=== PATIENT | female | born 1940 | race Caucasian/White ===

== ENCOUNTER 2017-12-15 06:20 | Day surgery (SDC) | payer MEDICARE ==
[2017-12-13 12:40] LABS: Basophils # (auto) 0.1 uL; Basophils % (auto) 0.9 % (0.0-2.0); Eosinophils # (auto) 0.1 uL; Eosinophils % (auto) 1.2 % (0.0-7.0); Hemoglobin 10.4 g/dL (12.2-16.2); Lymphocytes # (auto) 1.8 uL; Mean Corpuscular Hemoglobin 27.9 pg (28.0-32.0); Mean Corpuscular Hgb Conc. 31.4 g/dL (32.0-36.0); Mean Corpuscular Volume 88.8 fL (80.0-100.0); Monocytes # (auto) 0.9 uL; Monocytes % (auto) 8.8 % (0.0-12.0); Neutrophils # (auto) 7.5 uL; Neutrophils % (auto) 72.1 % (37.0-80.0); Platelet Count (auto) 379 10^3/uL (140-450); Red Blood Cells 3.72 10^6/uL (4.0-5.20); Red Cell Distribution Width 15.4 % (11.8-14.3); White Blood Cell 10.4 10^3/uL (4.4-10.8)
[2017-12-13 12:54] LABS: INR 0.88 (0.9-1.15); Partial Thromboplastin Time 20.3 sec (22.64-33.71); Prothrombin Time 9.6 sec (9.37-12.3)
[2017-12-13 12:56] LABS: Potassium 3.3 mmol/L (3.5-5.1)
[2017-12-13 13:02] LABS: Albumin 3.6 g/dL (3.4-5.0); BUN/Creatinine Ratio 16.4; Bilirubin, Total 0.2 mg/dL (0.2-1.0); Calcium 8.8 mg/dL (8.5-10.1); Total Protein 7.3 g/dL (6.4-8.2)
[~2017-12-15] VITALS: Ht 154.9 cm; Wt 81.6 kg
[~2017-12-15 06:20] MED LIST: ALBUAER3 IN; ALPR0.5T PO; LEVO50TA7 PO; PRE5T OR; TEMA30CA PO; TRAM50TA2 PO
[2017-12-15] MEDS ORDERED: HYDROCORTISONE SOD SUCC 100 MG/2ML INJ VIAL IV ONE (06:21)
[2017-12-15] MEDS ORDERED: BUPIVACAINE 0.75% INJ 10ML MPV SDV IJ ONE ×2 (06:55→09:30)
[2017-12-15] MEDS ORDERED: NEOMYCIN-BACITRACIN-POLYM 15GM TOP OINT TOP ONE ×2 (06:56→09:30)
[2017-12-15] MEDS ORDERED: ceFAZolin 1GM/50ML 50 ML IV ONE (07:53)
[2017-12-15] MEDS ORDERED: PROPOFOL 10 MG/ML 20 ML IV ONE (08:47)
[2017-12-15] MEDS ORDERED: MIDAZOLAM HCL 1MG/1ML-2 ML VIAL ONE (08:47)
[2017-12-15] MEDS ORDERED: fentaNYL CITRATE 100 MCG/2 ML VL ONE (08:47)
[2017-12-15] MEDS ORDERED: ePHEDrine SULFATE 50 MG/ML AMP IV PRN (09:15)
[2017-12-15] MEDS ORDERED: hydrALAZINE HCL 20 MG/ML VL IV PRN (09:15)
[2017-12-15] MEDS ORDERED: ONDANSETRON HCL 4 MG/2 ML VIAL IV ONE (09:15)
[2017-12-15 09:46] VITALS: BP 153/68
[2017-12-15] MEDS ORDERED: fentaNYL CITRATE 100 MCG/2 ML VL IV ONE (10:00)
== END 2017-12-15 09:50 | disposition home or self-care (01) ==
LOC: SUR 06:20
PROVIDERS: ATTEND Podiatrist Foot & Ankle Surgery
DX: M65.872 Other synovitis and tenosynovitis, left ankle and foot (principal); M25.572 Pain in left ankle and joints of left foot; E66.9 Obesity, unspecified; Z68.34 Body mass index [BMI] 34.0-34.9, adult; J45.909 Unspecified asthma, uncomplicated; Z87.891 Personal history of nicotine dependence; J44.9 Chronic obstructive pulmonary disease, unspecified; M81.0 Age-related osteoporosis without current pathological fracture; N39.0 Urinary tract infection, site not specified; Z79.891 Long term (current) use of opiate analgesic; Z79.899 Other long term (current) drug therapy; Z88.1 Allergy status to other antibiotic agents
CPT/HCPCS: 27626; 36415; 80053; 85025; 85610; 85730; J0690; J1720; J2250; J2704; J3010; J3490

== ENCOUNTER 2021-10-14 01:27 | Inpatient (IN) | payer MEDICARE, MEDICAID ==
[~2021-10-14] VITALS: Ht 152.4 cm; Wt 39.0 kg
[2021-10-14] VITALS (29 sets, daily range): BP systolic 82–124; BP diastolic 32–72
[2021-10-14] MEDS ORDERED: SODIUM CHLORIDE 0.9% 1,000 ML IV ONE (02:15)
[2021-10-14 03:19] LABS: Basophils # (auto) 0 10 ^3/uL (0-0.2); Basophils % (auto) 0.1 % (0.0-2.0); Eosinophils # (auto) 0 10 ^3/uL (0-0.8); Hematocrit 18.8 % (36.0-46.0); Lymphocytes # (auto) 0.4 10 ^3/uL (0.4-5.4); Lymphocytes % (auto) 1.7 % (10.0-50.0); Mean Corpuscular Hemoglobin 20.2 pg (28.0-32.0); Mean Corpuscular Hgb Conc. 28.3 g/dL (32.0-36.0); Mean Corpuscular Volume 71.5 fL (80.0-100.0); Monocytes # (auto) 1.4 10 ^3/uL (0-1.3); Monocytes % (auto) 6.7 % (0.0-12.0); Neutrophils # (auto) 19.2 10 ^3/uL (1.6-8.6); Neutrophils % (auto) 91.5 % (37.0-80.0); Nucleated Red Blood Cells % 1.6 %; Red Blood Cells 2.64 10^6/uL (4.0-5.20)
[2021-10-14 03:20] LABS: Hemoglobin 5.3 g/dL (12.2-16.2); Red Cell Distribution Width 22.2 % (11.8-14.3)
[2021-10-14 03:34] LABS: Albumin 3.3 g/dL (3.4-5.0); BUN/Creatinine Ratio 17.7; Potassium 4.7 mmol/L (3.5-5.1)
[2021-10-14 03:36] LABS: Lactic Acid w/Reflex 3.9 mmol/L (0.4-2.0)
[2021-10-14 03:42] LABS: Bilirubin, Total 0.6 mg/dL (0.2-1.0); Total Protein 6.7 g/dL (6.4-8.2)
[2021-10-14] MEDS ORDERED: ONDANSETRON HCL 4 MG/2 ML VIAL IM ONE (05:12)
[2021-10-14] MEDS ORDERED: ONDANSETRON HCL 4 MG/2 ML VIAL IV ONE (05:15)
[2021-10-14 06:35] LABS: INR 1.53 (0.9-1.15)
[2021-10-14] MEDS ORDERED: dilTIAZem 25 MG/5 ML VIAL IV ONE (07:45)
[2021-10-14] MEDS ORDERED: dilTIAZem 125mg/125ml BAG KIT 125 ML IV ONE (07:45)
[2021-10-14] MEDS: PHENYLEPHRINE IV 250 ML IV SCH ×2 (09:30→17:39)
[2021-10-14] MEDS ORDERED: cefTRIAXone 1GM/50ML D5W 50 ML IV ONE (10:30)
[2021-10-14] MEDS ORDERED: metroNIDAZOLE 500MG/100ML 100 ML IV ONE (10:30)
[2021-10-14] MEDS ORDERED: HYDROcodone-ACET 5/325MG TAB PO ONE (10:45)
[2021-10-14] MEDS ORDERED: MONTELUKAST SODIUM 10 MG TAB PO ONE (10:45)
[2021-10-14] MEDS ORDERED: methylPREDNISolone SOD SUCC 125 MG/2 ML VL IV ONE (10:45)
[2021-10-14] MEDS ORDERED: NITROGLYCERIN 0.4 MG SL TAB SL PRN (10:45)
[2021-10-14] MEDS ORDERED: DOCUSATE SOD 100 MG CAP PO PRN (10:45)
[2021-10-14] MEDS ORDERED: ONDANSETRON HCL 4 MG/2 ML VIAL IV PRN (10:45)
[2021-10-14] MEDS ORDERED: MORPHINE SULFATE INJECTION 2 MG/ML SYRG IV PRN ×2 (10:45)
[2021-10-14] MEDS ORDERED: LACTULOSE 20Gm/30ML SOLN PO PRN (10:45)
[2021-10-14] MEDS ORDERED: BUDESONIDE (INHALATION) 0.5 MG/2 ML NEB NEB ONE (10:45)
[2021-10-14] MEDS ORDERED: LORazepam 0.5 MG TAB PO PRN (10:45)
[2021-10-14] MEDS ORDERED: IPRATROPIUM BROM 0.5 MG/2.5ML INH SOL NEB ONE (10:45)
[2021-10-14] MEDS ORDERED: AZITHROMYCIN 500MG/ 250ML 250 ML IV ONE (10:45)
[2021-10-14] MEDS ORDERED: PANTOPRAZOLE 40 MG/10 ML VIAL INJ IV ONE (10:45)
[2021-10-14] MEDS ORDERED: hydrALAZINE HCL 20 MG/ML VL IV PRN (10:45)
[2021-10-14] MEDS ORDERED: METOCLOPRAMIDE HCL 5MG/ml INJ 2ml VIAL IV PRN (10:45)
[2021-10-14] MEDS: dilTIAZem 125mg/125ml BAG KIT 125 ML IV SCH (10:59)
[2021-10-14] MEDS: METOCLOPRAMIDE HCL 5MG/ml INJ 2ml VIAL IV PRN ×2 (11:13→18:54)
[2021-10-14 11:15] LABS: Mean Corpuscular Hgb Conc. 30.4 g/dL (32.0-36.0); Red Blood Cells 3.56 10^6/uL (4.0-5.20)
[2021-10-14 11:27] LABS: INR 1.55 (0.9-1.15); Partial Thromboplastin Time 28.5 sec (23.6-33.0)
[2021-10-14] MEDS ORDERED: FERROUS SULFATE 300 MG/5 ML ORAL LIQ PO ONE (11:30)
[2021-10-14] MEDS ORDERED: DEXTROSE (50%) 50ML SYRG IV PRN (11:30)
[2021-10-14 11:33] LABS: Albumin 2.9 g/dL (3.4-5.0); Calcium 7.2 mg/dL (8.5-10.1); Potassium 4.6 mmol/L (3.5-5.1)
[2021-10-14 11:38] LABS: Hematocrit 27.2 % (36.0-46.0); Hemoglobin 8.3 g/dL (12.2-16.2); Mean Corpuscular Hemoglobin 23.2 pg (28.0-32.0); Mean Corpuscular Volume 76.4 fL (80.0-100.0); White Blood Cell 29.9 10^3/uL (4.4-10.8)
[2021-10-14 11:42] LABS: Basophils % (manual) 0 (0.0-2.0); Blast Cells 0; Eosinophils % (manual) 0 (0-7); Lymphocytes % (manual) 0 (10.0-50.0); Metamyelocytes % 0; Myelocytes % 0; Promyelocytes % 0; Reactive Lymphocytes 0; Red Cell Distribution Width 21.5 % (11.8-14.3)
[2021-10-14] MEDS: ACCU-CHEK COMFORT CURVE STRIP VI SCH ×3 (12:00→22:00)
[2021-10-14] MEDS: InsuLIN REG 1unit/0.01ml Soln (100units/ml) SC SCH ×3 (12:00→22:00)
[2021-10-14 12:09] LABS: Magnesium 1.8 mg/dL (1.6-2.6); Phosphorus 8.6 mg/dL (2.5-4.90)
[2021-10-14 12:17] LABS: BUN/Creatinine Ratio 19.4; Bilirubin, Total 1.4 mg/dL (0.2-1.0); Total Protein 6.1 g/dL (6.4-8.2)
[2021-10-14 13:11] LABS: Band Neutrophils % (manual) 25; Monocytes % (manual) 1 (0-12)
[2021-10-14] MEDS: FERROUS SULFATE 300 MG/5 ML ORAL LIQ PO SCH ×2 (13:22→17:39)
[2021-10-14] MEDS: SODIUM CHLORIDE 0.9% 1,000 ML IV SCH (13:22)
[2021-10-14] MEDS: GABAPENTIN 100 MG CAP PO SCH ×2 (14:00→22:00)
[2021-10-14] MEDS: IPRATROPIUM BROM 0.5 MG/2.5ML INH SOL NEB SCH ×2 (14:07→18:20)
[2021-10-14] MEDS: methylPREDNISolone SOD SUCC 40 MG/ML VL IV SCH ×2 (15:19→21:39)
[2021-10-14] MEDS ORDERED: dilTIAZem 120MG ER CAP PO ONE (17:00)
[2021-10-14] MEDS: BUDESONIDE (INHALATION) 0.5 MG/2 ML NEB NEB SCH (19:38)
[2021-10-14] MEDS: PANTOPRAZOLE 40 MG/10 ML VIAL INJ IV SCH (21:38)
[2021-10-14] MEDS ORDERED: ATORVASTATIN 20 MG TAB PO SCH (22:00)
[2021-10-15] VITALS (32 sets, daily range): BP systolic 35–153; BP diastolic 16–77
[2021-10-15] MEDS ORDERED: IPRATROPIUM BROM 0.5 MG/2.5ML INH SOL NEB SCH
[2021-10-15] MEDS: PHENYLEPHRINE IV 250 ML IV SCH ×2 (02:10→05:10)
[2021-10-15] MEDS ORDERED: ACETAMINOPHEN 325 MG TAB PO PRN (05:15)
[2021-10-15] MEDS ORDERED: traMADol HCL 50 MG TAB PO ONE (05:15)
[2021-10-15 05:38] LABS: Hemoglobin 8.1 g/dL (12.2-16.2)
[2021-10-15 05:41] LABS: Hematocrit 26.9 % (36.0-46.0); Mean Corpuscular Hemoglobin 23.4 pg (28.0-32.0); Red Blood Cells 3.45 10^6/uL (4.0-5.20)
[2021-10-15 05:50] LABS: Red Cell Distribution Width 20.4 % (11.8-14.3)
[2021-10-15 05:51] LABS: White Blood Cell 36.6 10^3/uL (4.4-10.8)
[2021-10-15 05:53] LABS: Basophils % (manual) 0 (0.0-2.0); Blast Cells 0; Eosinophils % (manual) 0 (0-7); Metamyelocytes % 0; Myelocytes % 0; Promyelocytes % 0; Reactive Lymphocytes 0
[2021-10-15] MEDS: GABAPENTIN 100 MG CAP PO SCH ×2 (06:00→14:00)
[2021-10-15 06:02] LABS: INR 2.4 (0.9-1.15); Partial Thromboplastin Time 35.2 sec (23.6-33.0)
[2021-10-15 06:12] LABS: Albumin 2.8 g/dL (3.4-5.0); BUN/Creatinine Ratio 19.2; Bilirubin, Total 1.1 mg/dL (0.2-1.0); CRP High Sensitivity 12.6 mg/dL (< 0.3); Calcium 6.7 mg/dL (8.5-10.1); Magnesium 2.4 mg/dL (1.6-2.6); Total Protein 5.7 g/dL (6.4-8.2)
[2021-10-15 06:15] LABS: Phosphorus 10.7 mg/dL (2.5-4.90); Potassium 6.7 mmol/L (3.5-5.1)
[2021-10-15] MEDS ORDERED: NOREPINEPHRINE 8 MG/250ML KIT 250 ML IV ONE (06:15)
[2021-10-15 06:19] LABS: % Iron Saturation 3.4 % (15-50)
[2021-10-15] MEDS ORDERED: SODIUM BICARBONATE 8.4% INJ 50ML SYRINGE IV ONE ×3 (06:30→21:04)
[2021-10-15] MEDS ORDERED: CALCIUM GLUC 1,000mg/50ml-NS 50 ML IV ONE ×2 (06:30→08:45)
[2021-10-15] MEDS ORDERED: InsuLIN REG 1unit/0.01ml Soln (100units/ml) IV ONE ×3 (06:30→15:00)
[2021-10-15] MEDS ORDERED: DEXTROSE (50%) 50ML SYRG IV ONE ×3 (06:30→15:00)
[2021-10-15] MEDS ORDERED: SODIUM ZIRCONIUM CYCL 10 GM PAK PO ONE ×2 (06:30→15:00)
[2021-10-15 06:47] LABS: Band Neutrophils % (manual) 54; Lymphocytes % (manual) 1 (10.0-50.0); Monocytes % (manual) 3 (0-12)
[2021-10-15] MEDS: InsuLIN REG 1unit/0.01ml Soln (100units/ml) SC SCH ×2 (07:00→11:30)
[2021-10-15] MEDS: ACCU-CHEK COMFORT CURVE STRIP VI SCH ×2 (07:00→11:30)
[2021-10-15] MEDS ORDERED: LEVOTHYROXINE SODIUM 25 MCG TAB PO SCH (07:00)
[2021-10-15] MEDS: SODIUM CHLORIDE 0.9% 1,000 ML IV SCH (07:51)
[2021-10-15] MEDS: FERROUS SULFATE 300 MG/5 ML ORAL LIQ PO SCH ×2 (08:00→12:00)
[2021-10-15] MEDS ORDERED: NOREPINEPHRINE 8 MG/250ML KIT 250 ML IV SCH ×2 (08:00→15:15)
[2021-10-15 08:07] LABS: Urine Bacteria FEW /hpf (None Seen); Urine Blood Negative /uL (Negative); Urine Hyaline Cast FEW /lpf (0 - 2); Urine Mucus FEW (None Seen); Urine Specific Gravity 1.018 (1.001-1.035); Urine WBC 1 /hpf (0 - 5)
[2021-10-15 08:35] LABS: Alcohol, Urine < 3.0 mg/dL (0-10); Amphetamine Screen, Urine NEGATIVE (NEGATIVE); Barbiturate Scree,Urine NEGATIVE (NEGATIVE); Benzodiazephine Screen, Urine POSITIVE (NEGATIVE); Cocaine Screen, Urine NEGATIVE (NEGATIVE); Opiate Scree,Urine NEGATIVE (NEGATIVE); Phencyclidine Screen, Urine NEGATIVE (NEGATIVE)
[2021-10-15 08:43] LABS: Cannabinoid Screen, Urine POSITIVE (NEGATIVE)
[2021-10-15] MEDS ORDERED: SODIUM BICARBONATE 50ML VIAL 100 ML in D5W 5% 1,000 ML IV SCH (08:45)
[2021-10-15] MEDS: BUDESONIDE (INHALATION) 0.5 MG/2 ML NEB NEB SCH (08:51)
[2021-10-15] MEDS ORDERED: cefTRIAXone 1GM/50ML D5W 50 ML IV SCH (09:00)
[2021-10-15] MEDS ORDERED: ALBUTEROL SULF 2.5 MG/0.5ML(0.5%) NEB SOLN NEB ONE (09:15)
[2021-10-15] MEDS ORDERED: CHOLECALCIFEROL (VITD3) 2,000 UNIT CAP/TAB PO SCH (10:00)
[2021-10-15] MEDS ORDERED: LEVOTHYROXINE SODIUM 100 MCG/5 ML INJ IV SCH (10:00)
[2021-10-15] MEDS ORDERED: AZITHROMYCIN 500MG/ 250ML 250 ML IV SCH (10:00)
[2021-10-15] MEDS ORDERED: MEROPENEM 500MG IVPB 50 ML IV SCH (10:00)
[2021-10-15] MEDS ORDERED: ROCURONIUM 10MG/ML 10ML VIAL IV ONE (10:00)
[2021-10-15] MEDS ORDERED: ETOMIDATE (2MG/ML) 20ML VIAL IV ONE (10:00)
[2021-10-15] MEDS ORDERED: dilTIAZem HCL 180MG ER CAP PO SCH (10:00)
[2021-10-15] MEDS ORDERED: PROPOFOL 0 ML IV ONE (10:03)
[2021-10-15] MEDS ORDERED: DOPamine 1600MCG/ML D5W 250 ML IV ONE (10:09)
[2021-10-15] MEDS ORDERED: fentaNYL Drip 2500mCg/250mlNS 250 ML IV SCH ×2 (10:15→15:15)
[2021-10-15] MEDS ORDERED: DOPamine 1600MCG/ML D5W 250 ML IV SCH ×2 (10:15→15:15)
[2021-10-15] MEDS ORDERED: fentaNYL Drip 2500mCg/250mlNS 250 ML IV ONE (10:16)
[2021-10-15] MEDS: dilTIAZem 125mg/125ml BAG KIT 125 ML IV SCH (10:45)
[2021-10-15] MEDS ORDERED: EPINEPHrine HCL 250 ML IV ONE (12:48)
[2021-10-15] MEDS ORDERED: VASOPRESSIN 50 UNITS in D5W 5% 247.5 ML IV SCH ×2 (13:15→15:15)
[2021-10-15 13:34] LABS: Basophils % (auto) 0.2 % (0.0-2.0); Eosinophils # (auto) 0 10 ^3/uL (0-0.8); Lymphocytes # (auto) 0.8 10 ^3/uL (0.4-5.4)
[2021-10-15 13:36] LABS: Basophils # (auto) 0 10 ^3/uL (0-0.2); Eosinophils % (auto) 0.1 % (0.0-7.0); Hematocrit 20.1 % (36.0-46.0); Lymphocytes % (auto) 3.1 % (10.0-50.0); Mean Corpuscular Hemoglobin 24.4 pg (28.0-32.0); Mean Corpuscular Hgb Conc. 30.5 g/dL (32.0-36.0); Mean Corpuscular Volume 79.9 fL (80.0-100.0); Monocytes # (auto) 1.6 10 ^3/uL (0-1.3); Monocytes % (auto) 6.7 % (0.0-12.0); Neutrophils # (auto) 22.2 10 ^3/uL (1.6-8.6); Neutrophils % (auto) 89.9 % (37.0-80.0); Red Blood Cells 2.52 10^6/uL (4.0-5.20); Red Cell Distribution Width 19.8 % (11.8-14.3); White Blood Cell 24.6 10^3/uL (4.4-10.8)
[2021-10-15 13:43] LABS: Albumin 1.7 g/dL (3.4-5.0)
[2021-10-15] MEDS: PANTOPRAZOLE 40 MG/10 ML VIAL INJ IV SCH (13:53)
[2021-10-15 13:59] LABS: Bilirubin, Total 1.2 mg/dL (0.2-1.0); Total Protein 3.6 g/dL (6.4-8.2)
[2021-10-15] MEDS ORDERED: MEROPENEM 1GM IVPB 100 ML IV SCH (14:00)
[2021-10-15] MEDS ORDERED: FUROSEMIDE 100 MG/10ML VIAL IV ONE (14:00)
[2021-10-15] MEDS: methylPREDNISolone SOD SUCC 40 MG/ML VL IV SCH (14:00)
[2021-10-15 14:01] LABS: Nucleated Red Blood Cells % 6.2 %
[2021-10-15 14:03] LABS: Hemoglobin 6.1 g/dL (12.2-16.2)
[2021-10-15 14:27] LABS: Calcium 13.8 mg/dL (8.5-10.1); Phosphorus 13.5 mg/dL (2.5-4.90); Potassium 8.6 mmol/L (3.5-5.1)
[2021-10-15 14:28] LABS: BUN/Creatinine Ratio 17.8
[2021-10-15 14:35] LABS: INR 4.51 (0.9-1.15)
[2021-10-15] MEDS ORDERED: SODIUM BICARBONATE 8.4 % INJ 50ML VIAL IV ONE (15:00)
[2021-10-15] MEDS ORDERED: PHYTONADIONE (VIT K)10 MG/ML 1ML VIAL SUBCUT ONE (15:00)
[2021-10-15] MEDS ORDERED: EPINEPHrine HCL 250 ML IV SCH (15:15)
[2021-10-15] MEDS ORDERED: MIDAZOLAM DRIP 50 mg/50mL 50 ML IV SCH (15:15)
[2021-10-15] MEDS ORDERED: PROPOFOL 100 ML IV SCH (15:15)
[2021-10-15] MEDS ORDERED: ALBUMIN 25% 100 ML IV ONE (15:15)
[2021-10-15] MEDS ORDERED: PHENYLEPHRINE IV 250 ML IV SCH (15:15)
[2021-10-15] MEDS ORDERED: SODIUM CHLORIDE 0.9% 1,150 ML IV ONE (15:15)
[2021-10-15] MEDS ORDERED: phytonadione 1 ML ONE (16:12)
[2021-10-15] MEDS ORDERED: EPINEPHrine HCL 1 MG/10 ML SYRG IV ONE (21:04)
[2021-10-15] MEDS ORDERED: ATROPINE SULF 1 MG/10ml SYR IM ONE (21:04)
[2021-10-15] MEDS ORDERED: CALCIUM CHLOR(10%) 100MG/ML 10ML SYRINGE IV ONE (21:04)
[2021-10-15] MEDS ORDERED: MONTELUKAST SODIUM 10 MG TAB PO SCH (22:00)
[2021-10-16 09:03] LABS: Hepatitis B Surface Antibody Negative (Negative)
[2021-10-16 09:39] LABS: Hepatitis A Total Antibody Positive (Negative)
[2021-10-16 13:43] LABS: Hepatitis A Ab IgM Negative
[2021-10-16 14:34] LABS: Hepatitis B Core IgM Negative
[2021-10-16 14:40] LABS: Hepatitis C Antibody Negative (Negative)
[2021-10-16 14:41] LABS: Hepatitis C Antibody Negative (Negative)
== END 2021-10-15 21:05 | DRG 871 ==
LOC: ER 01:27 → EDBD 01:27 → OVERFLOW 10:32 → DOU IN ICU 14:05
PROVIDERS: ADMIT Hospitalist; ATTEND Specialist
PROC: 30233N1 Transfusion of Nonautologous Red Blood Cells into Peripheral Vein, Percutaneous Approach (ICD-10-PCS; 2021-10-14)
PROC: 06HN33Z Insertion of Infusion Device into Left Femoral Vein, Percutaneous Approach (ICD-10-PCS; 2021-10-14)
PROC: 5A1935Z Respiratory Ventilation, Less than 24 Consecutive Hours (ICD-10-PCS; principal; 2021-10-15)
PROC: 0BH17EZ Insertion of Endotracheal Airway into Trachea, Via Natural or Artificial Opening (ICD-10-PCS; 2021-10-15)
PROC: 02HV33Z Insertion of Infusion Device into Superior Vena Cava, Percutaneous Approach (ICD-10-PCS; 2021-10-15)
PROC: B548ZZA Ultrasonography of Superior Vena Cava, Guidance (ICD-10-PCS; 2021-10-15)
PROC: 04HY32Z Insertion of Monitoring Device into Lower Artery, Percutaneous Approach (ICD-10-PCS; 2021-10-15)
PROC: 4A133B1 Monitoring of Arterial Pressure, Peripheral, Percutaneous Approach (ICD-10-PCS; 2021-10-15)
PROC: 4A133J1 Monitoring of Arterial Pulse, Peripheral, Percutaneous Approach (ICD-10-PCS; 2021-10-15)
PROC: 0W993ZZ Drainage of Right Pleural Cavity, Percutaneous Approach (ICD-10-PCS; 2021-10-15)
PROC: 5A12012 Performance of Cardiac Output, Single, Manual (ICD-10-PCS; 2021-10-15)
DX: A41.9 Sepsis, unspecified organism (principal); R65.21 Severe sepsis with septic shock; J18.9 Pneumonia, unspecified organism; E43 Unspecified severe protein-calorie malnutrition; J96.21 Acute and chronic respiratory failure with hypoxia; N39.0 Urinary tract infection, site not specified; I48.19 Other persistent atrial fibrillation; J44.1 Chronic obstructive pulmonary disease with (acute) exacerbation; B17.9 Acute viral hepatitis, unspecified; N17.9 Acute kidney failure, unspecified; Z68.1 Body mass index [BMI] 19.9 or less, adult; J44.0 Chronic obstructive pulmonary disease with (acute) lower respiratory infection; I50.9 Heart failure, unspecified; J20.9 Acute bronchitis, unspecified; Z20.822 Contact with and (suspected) exposure to COVID-19; R62.7 Adult failure to thrive; D64.9 Anemia, unspecified; E03.9 Hypothyroidism, unspecified; E11.9 Type 2 diabetes mellitus without complications; E78.5 Hyperlipidemia, unspecified; I27.20 Pulmonary hypertension, unspecified; I34.0 Nonrheumatic mitral (valve) insufficiency; I46.9 Cardiac arrest, cause unspecified; Z74.01 Bed confinement status; Z99.81 Dependence on supplemental oxygen
CPT/HCPCS: 36415; 36430; 36600; 71045; 71250; 76604; 76705; 80053; 80061; 80074; 80307; 81001; 82805; 82962; 83036; 83540; 83550; 83605; 83615; 83690; 83735; 83880; 84100; 84443; 84484; 85007; 85025; 85027; 85379; 85610; 85652; 85730; 86141; 86704; 86706; 86708; 86803; 86850; 86900; 86901; 86920; 87040; 87070; 87077; 87081; 87086; 87205; 87340; 92610; 93005; 93306; 94002; 94640; 94644; 96365; 96372; 96375; 99291; C9113; G0378; J0171; J0696; J1815; J2185; J2405; J2704; J3430; J3490; J7060